=== PATIENT | female | born 2000 | race Caucasian/White ===

== ENCOUNTER 2021-06-29 12:34 | Emergency (ER) | payer MEDICAID, OTHER ==
[~2021-06-29] VITALS: Ht 154.9 cm; Wt 50.8 kg
[2021-06-29 13:56] VITALS: BP 107/74
[2021-06-29] MEDS ORDERED: PRED20TA2 PO (15:16)
[2021-06-29] MEDS ORDERED: AMOX-277 PO (15:16)
== END 2021-06-29 16:45 | disposition home or self-care (01) ==
LOC: ER 12:34
DX: J06.9 Acute upper respiratory infection, unspecified (principal); J45.909 Unspecified asthma, uncomplicated; Z20.822 Contact with and (suspected) exposure to COVID-19
CPT/HCPCS: 36415